=== PATIENT | female | born 1990 | race Caucasian/White ===

== ENCOUNTER 2017-12-11 13:59 | Emergency (ER) | payer OTHER ==
[~2017-12-11] VITALS: Ht 165.1 cm; Wt 68.0 kg
[~2017-12-11 13:59] MED LIST: PRE NATAL VITS
[2017-12-11 14:00] VITALS: BP_SYST 114
--- NOTE | 2017-12-11 15:35 | NUR ---
Patient to ER [facility] for evaluation. Side rails up. will assume care
[2017-12-11 15:40] LABS: BILIRUBIN,URINE NEGATIVE (NEGATIVE); BLOOD, URINE NEGATIVE (NEGATIVE); CLARITY/URINE CLEAR (CLEAR); COLOR,URINE YELLOW (YELLOW); GLUCOSE,URINE NEGATIVE (NEGATIVE); KETONES,URINE NEGATIVE (NEGATIVE); LEUKOCYTE ESTERASE ,URINE NEGATIVE (NEGATIVE); NITRITE, URINE NEGATIVE (NEGATIVE); PROTEIN URINE NEGATIVE (NEGATIVE); UROBILINOGEN,URINE 0.2 (0.2-1.0)
--- NOTE | 2017-12-11 15:40 | NUR ---
Patient complaining of upper back pain x 2 weeks. Denies any trauma. Elvira, 05/26. Denies any history. No other complaints/injuries per patient or as noted. WIll continue to monitor.
--- NOTE | 2017-12-11 15:44 | NUR ---
ER Pa Natarajan at bedside examining patient.
[2017-12-11 15:58] VITALS: BP_SYST 114
--- NOTE | 2017-12-11 15:58 | NUR ---
Patient given written and verbal discharge instructions and verbalizes understanding. ER MD discussed with patient the results and treatment provided. Patient in stable condition. ID arm band removed. Rx of Tylenol given. Patient educated on pain management and to follow up with PMD in 2-3 days. Pain Scale 0/10 Opportunity for questions provided and answered.
== END 2017-12-11 15:58 | disposition home or self-care (01) ==
LOC: SED 13:59
DX: M54.6 Pain in thoracic spine (principal)
CPT/HCPCS: 81003; 81025; 99283

== ENCOUNTER 2019-05-03 09:56 | Emergency (ER) | payer MEDICAID, OTHER ==
[~2019-05-03] VITALS: Ht 165.1 cm; Wt 64.0 kg
[2019-05-03 10:00] VITALS: BP_SYST 116
--- NOTE | 2019-05-03 10:00 | NUR ---
BROUGHT BACK TO BED #6 AND TRIAGED. REPORT GIVEN TO FITZ
--- NOTE | 2019-05-03 10:15 | NUR ---
PATIENT CAME IN COMPLAINING OF LEFT SIDED LOWER ABD CRAMPS / PAIN. PATIENT STATES IT STARTED LAST FRIDAY BUT NOW PAIN IS MORE CONSTANT. PATIENT STATES SHE IS SPOTTING BLOOD WHEN SHE WIPES. PATIENT NOT COMPLAINING OF NAUSEA OR VOMITING OR SOB. PATIENT ALERT AND ORIENTED X4.
--- NOTE | 2019-05-03 10:22 | NUR ---
ER Dr. CORTEZ at bedside examining patient.
--- NOTE | 2019-05-03 10:25 | NUR ---
PATIENT TAKEN TO [facility] IN STABLE CONDITION.
[2019-05-03 11:15] LABS: BILIRUBIN,URINE NEGATIVE (NEGATIVE); BLOOD, URINE NEGATIVE (NEGATIVE); CLARITY/URINE CLEAR (CLEAR); COLOR,URINE YELLOW (YELLOW); GLUCOSE,URINE NEGATIVE (NEGATIVE); KETONES,URINE TRACE (NEGATIVE); LEUKOCYTE ESTERASE ,URINE TRACE (NEGATIVE); NITRITE, URINE NEGATIVE (NEGATIVE); PH,URINE 5.5 (5.0-8.0); PROTEIN URINE NEGATIVE (NEGATIVE); UROBILINOGEN,URINE 0.2 (0.2-1.0)
[2019-05-03 11:20] LABS: BACTERIA,URINE FEW /HPF (None Seen); MUCUS,URINE 1+ /LPF (None Seen); RBC,URINE 0-3 /HPF (0-3)
[2019-05-03 11:23] LABS: BASOPHILS # (AUTO) 0.1 K/uL (0.0-0.2); BASOPHILS % (AUTO) 1.2 % (0.0-2.0); EOSINOPHILS % (AUTO) 0.1 % (0.0-4.0); HEMATOCRIT 37.2 % (36-48); HEMOGLOBIN 12.5 g/dL (12.0-16.0); LYMPHOCYTES # (AUTO) 1.8 K/uL (1.0-5.5); LYMPHOCYTES % (AUTO) 30.5 % (20.5-51.5); MEAN CORPUSCULAR HEMOGLOBIN 30 pg (27-31); MEAN CORPUSCULAR HGB CONC 34 % (32-36); MEAN CORPUSCULAR VOLUME 89 fL (79.0-98.0); MONOCYTES # (AUTO) 0.3 K/uL (0.0-1.0); MONOCYTES % (AUTO) 4.9 % (1.7-9.3); NEUTROPHILS # (AUTO) 3.7 K/uL (1.8-7.7); NEUTROPHILS % (AUTO) 63.3 % (40.0-70.0); PLATELET COUNT (AUTO) 330 K/uL (130-430); RED BLOOD CELL COUNT(AUTO) 4.19 MIL/uL (4.2-6.2); RED CELL DISTRIBUTION WIDTH 14.4 % (9.0-15.0); WHITE BLOOD COUNT (AUTO) 5.9 K/uL (4.8-10.8)
[2019-05-03 11:42] LABS: CALCIUM 9.5 mg/dL (8.4-11.0); CREATININE 0.57 mg/dL (0.55-1.30); POTASSIUM 3.9 mmol/L (3.5-5.1)
[2019-05-03 12:08] LABS: ALBUMIN 3.9 g/dL (3.4-4.8); TOTAL BILIRUBIN 0.4 mg/dL (0.0-1.0)
--- NOTE | 2019-05-03 13:07 | NUR ---
Patient given written and verbal discharge instructions and verbalizes understanding. ER MD Faulkner discussed with patient the results and treatment provided. Patient in stable condition. ID arm band removed. Rx of Macrodantin given. Patient educated on pain management and to follow up with PMD. Pain Scale 0. Opportunity for questions provided and answered. Medication side effect fact sheet provided.
[2019-05-03 13:08] VITALS: BP_SYST 116
== END 2019-05-03 13:07 | disposition home or self-care (01) ==
LOC: SED 09:56
DX: O23.41 Unspecified infection of urinary tract in pregnancy, first trimester (principal); O30.091 Twin pregnancy, unable to determine number of placenta and number of amniotic sacs, first trimester; Z3A.01 Less than 8 weeks gestation of pregnancy
CPT/HCPCS: 36415; 76801; 76817; 80053; 81000-TC; 81025; 84702-TC; 85025; 86901; 99284

== ENCOUNTER 2019-05-10 15:31 | Emergency (ER) | payer MEDICAID ==
[~2019-05-10] VITALS: Ht 162.6 cm; Wt 65.8 kg
[2019-05-10 15:37] VITALS: BP_SYST 136
[2019-05-10 17:03] LABS: BILIRUBIN,URINE NEGATIVE (NEGATIVE); BLOOD, URINE 2+ (NEGATIVE); CLARITY/URINE CLEAR (CLEAR); COLOR,URINE YELLOW (YELLOW); GLUCOSE,URINE NEGATIVE (NEGATIVE); KETONES,URINE NEGATIVE (NEGATIVE); LEUKOCYTE ESTERASE ,URINE NEGATIVE (NEGATIVE); NITRITE, URINE NEGATIVE (NEGATIVE); PROTEIN URINE NEGATIVE (NEGATIVE); UROBILINOGEN,URINE 0.2 (0.2-1.0)
[2019-05-10 17:04] LABS: BASOPHILS % (AUTO) 0.7 % (0.0-2.0); EOSINOPHILS % (AUTO) 0.6 % (0.0-4.0); HEMATOCRIT 33.8 % (36-48); HEMOGLOBIN 11.4 g/dL (12.0-16.0); LYMPHOCYTES # (AUTO) 2.2 K/uL (1.0-5.5); LYMPHOCYTES % (AUTO) 32.5 % (20.5-51.5); MEAN CORPUSCULAR HEMOGLOBIN 30 pg (27-31); MEAN CORPUSCULAR HGB CONC 34 % (32-36); MEAN CORPUSCULAR VOLUME 89 fL (79.0-98.0); MONOCYTES # (AUTO) 0.6 K/uL (0.0-1.0); MONOCYTES % (AUTO) 8.9 % (1.7-9.3); NEUTROPHILS # (AUTO) 3.9 K/uL (1.8-7.7); NEUTROPHILS % (AUTO) 57.3 % (40.0-70.0); PLATELET COUNT (AUTO) 273 K/uL (130-430); RED BLOOD CELL COUNT(AUTO) 3.78 MIL/uL (4.2-6.2); RED CELL DISTRIBUTION WIDTH 14.4 % (9.0-15.0); WHITE BLOOD COUNT (AUTO) 6.7 K/uL (4.8-10.8)
[2019-05-10 17:13] LABS: BACTERIA,URINE FEW /HPF (None Seen); WBC,URINE 0-3 /HPF (0-3)
[2019-05-10 17:15] LABS: CREATININE 0.56 mg/dL (0.55-1.30); POTASSIUM 3.5 mmol/L (3.5-5.1)
[2019-05-10 17:41] LABS: ALBUMIN 3.3 g/dL (3.4-4.8); TOTAL BILIRUBIN 0.1 mg/dL (0.0-1.0)
[2019-05-10] MEDS ORDERED: ACETAMINOPHEN 500 MG TABLET PO ONE (19:30)
[2019-05-10 19:50] VITALS: BP_SYST 126
[2019-05-12 03:05] LABS: CHLAMYDIA TRACHOMATIS NAA Negative (Negative); NEISSERIA GONORRHOEAE NAA Negative (Negative)
== END 2019-05-10 19:50 | disposition home or self-care (01) ==
LOC: SED 15:31
DX: O20.0 Threatened abortion (principal); R03.0 Elevated blood-pressure reading, without diagnosis of hypertension; Z79.2 Long term (current) use of antibiotics; Z3A.01 Less than 8 weeks gestation of pregnancy; Z37.4 Twins, both stillborn
CPT/HCPCS: 36415; 76801; 76817; 80053; 81000-TC; 83690-TC; 84702-TC; 85025; 86900; 86901; 87086; 87491; 87591; 99284

== ENCOUNTER 2019-05-21 18:53 | Emergency (ER) | payer MEDICAID ==
--- NOTE | 2019-05-21 19:30 | NUR ---
Called in waiting room, no answer.
--- NOTE | 2019-05-21 19:35 | NUR ---
Patient called for a second time, patient not seen in ER hallway, ER lobby, or ER entrance.
--- NOTE | 2019-05-21 19:40 | NUR ---
Patient called for a third time, patient not seen in ER hallway, ER lobby, or ER entrance.
== END 2019-05-21 19:40 | disposition left against medical advice (07) ==
LOC: SED 18:53
DX: R10.9 Unspecified abdominal pain (principal); Z53.21 Procedure and treatment not carried out due to patient leaving prior to being seen by health care provider
CPT/HCPCS: J7030

== ENCOUNTER 2019-06-28 17:15 | Emergency (ER) | payer MEDICAID ==
[~2019-06-28] VITALS: Ht 160 cm; Wt 66.7 kg
[2019-06-28 17:20] VITALS: BP_SYST 149
[2019-06-28 18:00] LABS: BASOPHILS % (AUTO) 0.7 % (0.0-2.0); EOSINOPHILS % (AUTO) 0.3 % (0.0-4.0); HEMATOCRIT 36.4 % (36-48); HEMOGLOBIN 12.2 g/dL (12.0-16.0); LYMPHOCYTES # (AUTO) 2.6 K/uL (1.0-5.5); LYMPHOCYTES % (AUTO) 43.3 % (20.5-51.5); MEAN CORPUSCULAR HEMOGLOBIN 30 pg (27-31); MEAN CORPUSCULAR HGB CONC 33 % (32-36); MEAN CORPUSCULAR VOLUME 89 fL (79.0-98.0); MONOCYTES # (AUTO) 0.3 K/uL (0.0-1.0); MONOCYTES % (AUTO) 5.3 % (1.7-9.3); NEUTROPHILS % (AUTO) 50.4 % (40.0-70.0); PLATELET COUNT (AUTO) 316 K/uL (130-430); RED BLOOD CELL COUNT(AUTO) 4.11 MIL/uL (4.2-6.2); RED CELL DISTRIBUTION WIDTH 13.3 % (9.0-15.0); WHITE BLOOD COUNT (AUTO) 5.9 K/uL (4.8-10.8)
[2019-06-28 20:25] VITALS: BP_SYST 132
== END 2019-06-28 20:25 | disposition home or self-care (01) ==
LOC: SED 17:15
DX: O46.91 Antepartum hemorrhage, unspecified, first trimester (principal); Z3A.01 Less than 8 weeks gestation of pregnancy
CPT/HCPCS: 36415; 76801; 76817; 76857; 84702-TC; 85025; 86900; 86901; 99284

== ENCOUNTER 2019-07-06 15:52 | Emergency (ER) | payer MEDICAID ==
[~2019-07-06] VITALS: Ht 160 cm; Wt 66.7 kg
[2019-07-06 16:00] VITALS: BP_SYST 138
[2019-07-06 16:51] LABS: BASOPHILS % (AUTO) 0.3 % (0.0-2.0); EOSINOPHILS # (AUTO) 0.1 K/uL (0.0-0.4); EOSINOPHILS % (AUTO) 0.8 % (0.0-4.0); HEMATOCRIT 33.2 % (36-48); HEMOGLOBIN 11.2 g/dL (12.0-16.0); LYMPHOCYTES # (AUTO) 2.1 K/uL (1.0-5.5); LYMPHOCYTES % (AUTO) 28.9 % (20.5-51.5); MEAN CORPUSCULAR HEMOGLOBIN 30 pg (27-31); MEAN CORPUSCULAR HGB CONC 34 % (32-36); MEAN CORPUSCULAR VOLUME 88 fL (79.0-98.0); MONOCYTES # (AUTO) 0.5 K/uL (0.0-1.0); MONOCYTES % (AUTO) 6.7 % (1.7-9.3); NEUTROPHILS # (AUTO) 4.6 K/uL (1.8-7.7); NEUTROPHILS % (AUTO) 63.3 % (40.0-70.0); PLATELET COUNT (AUTO) 335 K/uL (130-430); RED BLOOD CELL COUNT(AUTO) 3.78 MIL/uL (4.2-6.2); RED CELL DISTRIBUTION WIDTH 13.4 % (9.0-15.0); WHITE BLOOD COUNT (AUTO) 7.2 K/uL (4.8-10.8)
[2019-07-06 17:15] LABS: CREATININE 0.53 mg/dL (0.55-1.30); POTASSIUM 4.4 mmol/L (3.5-5.1)
--- NOTE | 2019-07-06 17:15 | NUR ---
Accompanied patient to ultrasound for transvaginal ultrasound. Patient tolerated well.
[2019-07-06 17:27] LABS: ALBUMIN 3.5 g/dL (3.4-4.8); TOTAL BILIRUBIN 0.2 mg/dL (0.0-1.0)
--- NOTE | 2019-07-06 17:36 | NUR ---
Patient to ER bed 05 to gown for evaluation. Side rails up. Report given to DAKOTA Queen
--- NOTE | 2019-07-06 17:38 | NUR ---
Marina Steve DIGITAL MARKETING EXECUTIVE at bedside examining patient.
--- NOTE | 2019-07-06 17:40 | NUR ---
pt returned back from US.
--- NOTE | 2019-07-06 18:20 | NUR ---
Marina Steve SERVICE NOW DEVELOPER performing a pelvic exam at the bedside.
[2019-07-06 18:44] LABS: BILIRUBIN,URINE NEGATIVE (NEGATIVE); BLOOD, URINE 3+ (NEGATIVE); CLARITY/URINE CLEAR (CLEAR); COLOR,URINE YELLOW (YELLOW); GLUCOSE,URINE NEGATIVE (NEGATIVE); KETONES,URINE NEGATIVE (NEGATIVE); LEUKOCYTE ESTERASE ,URINE NEGATIVE (NEGATIVE); NITRITE, URINE NEGATIVE (NEGATIVE); PROTEIN URINE NEGATIVE (NEGATIVE); UROBILINOGEN,URINE 0.2 (0.2-1.0)
[2019-07-06] MEDS: ACETAMINOPHEN 500 MG TABLET PO ONE (18:56)
[2019-07-06 18:57] VITALS: BP_SYST 138
--- NOTE | 2019-07-06 18:59 | NUR ---
Patient given written and verbal discharge instructions and verbalizes understanding. ER MD discussed with patient the results and treatment provided. Patient in stable condition. ID arm band removed. Patient educated on pain management and to follow up with PMD. Pain Scale 3/10 .Opportunity for questions provided and answered. Medication side effect fact sheet provided.Patient instructed to f/u with her OBGYN in 2 days.
[2019-07-06] MEDS ORDERED: ACETAMINOPHEN 500 MG TABLET ONE (19:06)
[2019-07-06 19:11] LABS: BACTERIA,URINE FEW /HPF (None Seen); MUCUS,URINE None Seen /LPF (None Seen); RBC,URINE 20-50 /HPF (0-3); WBC,URINE 0-3 /HPF (0-3)
== END 2019-07-06 18:57 | disposition home or self-care (01) ==
LOC: SED 15:52
DX: N93.9 Abnormal uterine and vaginal bleeding, unspecified (principal); R10.2 Pelvic and perineal pain; D64.9 Anemia, unspecified; R03.0 Elevated blood-pressure reading, without diagnosis of hypertension
CPT/HCPCS: 36415; 76830-TC; 76857; 80053; 81000-TC; 84702-TC; 85025; 99284

== ENCOUNTER 2019-09-27 21:39 | Emergency (ER) | payer MEDICAID ==
[~2019-09-27] VITALS: Ht 160 cm; Wt 66.7 kg
[2019-09-27 21:51] VITALS: BP_SYST 130
--- NOTE | 2019-09-27 21:54 | NUR ---
Patient triaged and placed in waiting room. VSS and patient appears in no acute distress at this time. Accompanied by family, awaiting available bed, and MD notified of need for MSE.
--- NOTE | 2019-09-27 22:59 | NUR ---
Pt ambulatory to bed 6 for evaluation
--- NOTE | 2019-09-27 23:01 | NUR ---
Pt c/o vomiting x 3 episodes today. Pt states yesterday she felt short of breath and then today she starte to feel dizzy and nauseous. Pt denies having any recent coughs or cold. Pt denies fever, chills, diarrhea/constipation. No other injuries/complaints per patient or noted.
--- NOTE | 2019-09-27 23:32 | NUR ---
ER Dr. Parker at bedside examining patient.
[2019-09-27] MEDS ORDERED: NACL 0.9% 1,000 ML IV ONE (23:36)
[2019-09-27] MEDS ORDERED: ONDANSETRON HCL 4 MG/2 ML VIAL IVP ONE (23:45)
[2019-09-27 23:56] LABS: BILIRUBIN,URINE NEGATIVE (NEGATIVE); BLOOD, URINE NEGATIVE (NEGATIVE); CLARITY/URINE CLEAR (CLEAR); COLOR,URINE YELLOW (YELLOW); GLUCOSE,URINE NEGATIVE (NEGATIVE); KETONES,URINE NEGATIVE (NEGATIVE); LEUKOCYTE ESTERASE ,URINE NEGATIVE (NEGATIVE); NITRITE, URINE NEGATIVE (NEGATIVE); PROTEIN URINE NEGATIVE (NEGATIVE); UROBILINOGEN,URINE 0.2 (0.2-1.0)
[2019-09-28 00:15] LABS: ALBUMIN 3.5 g/dL (3.4-4.8); CALCIUM 8.3 mg/dL (8.4-11.0); CREATININE 0.66 mg/dL (0.55-1.30); POTASSIUM 3.6 mmol/L (3.5-5.1); TOTAL BILIRUBIN 0.2 mg/dL (0.0-1.0)
[2019-09-28 00:16] LABS: BASOPHILS # (AUTO) 0.1 K/uL (0.0-0.2); BASOPHILS % (AUTO) 2.1 % (0.0-2.0); EOSINOPHILS % (AUTO) 0.9 % (0.0-4.0); HEMATOCRIT 32.8 % (36-48); HEMOGLOBIN 11.2 g/dL (12.0-16.0); LYMPHOCYTES # (AUTO) 2.5 K/uL (1.0-5.5); MEAN CORPUSCULAR HEMOGLOBIN 29 pg (27-31); MEAN CORPUSCULAR HGB CONC 34 % (32-36); MEAN CORPUSCULAR VOLUME 84 fL (79.0-98.0); MONOCYTES # (AUTO) 0.3 K/uL (0.0-1.0); MONOCYTES % (AUTO) 6.8 % (1.7-9.3); NEUTROPHILS % (AUTO) 40.2 % (40.0-70.0); PLATELET COUNT (AUTO) 284 K/uL (130-430); RED BLOOD CELL COUNT(AUTO) 3.88 MIL/uL (4.2-6.2); RED CELL DISTRIBUTION WIDTH 14.1 % (9.0-15.0)
[2019-09-28 00:22] LABS: PROTHROMBIN TIME 9.8 SECS (9.5-12.5)
--- NOTE | 2019-09-28 01:31 | NUR ---
Patient states she no longer feels nauseous, no pain. Dr. Parker made aware.
[2019-09-28 01:40] VITALS: BP_SYST 127
--- NOTE | 2019-09-28 01:40 | NUR ---
Patient given written and verbal discharge instructions and verbalizes understanding. ER MD discussed with patient the results and treatment provided. Patient in stable condition. ID arm band removed. IV catheter removed intact and dressing applied, no active bleeding. Rx of Zofran given. Patient educated on pain management and to follow up with PMD. Pain Scale 0. Opportunity for questions provided and answered. Medication side effect fact sheet provided.
== END 2019-09-28 01:40 | disposition home or self-care (01) ==
LOC: SED 21:39
DX: R11.2 Nausea with vomiting, unspecified (principal); R42 Dizziness and giddiness
CPT/HCPCS: 36415; 80053; 81003; 81025; 82150; 83690; 85025; 85610; 96361; 96374; 99283; J2405; J7030

== ENCOUNTER 2019-10-22 07:50 | Emergency (ER) | payer MEDICAID | END 2019-10-22 08:46 | disposition home or self-care (01) | LOC: SED 07:50 | DX: J02.8 Acute pharyngitis due to other specified organisms (principal); B97.89 Other viral agents as the cause of diseases classified elsewhere; K12.0 Recurrent oral aphthae | CPT/HCPCS: 99283 ==

== ENCOUNTER 2021-07-14 09:39 | Emergency (ER) | payer MEDICAID, OTHER ==
[~2021-07-14] VITALS: Ht 162.6 cm; Wt 68.9 kg
--- NOTE | 2021-07-14 09:39 | NUR ---
Patient triaged and placed in waiting room. VSS and patient appears in no acute distress at this time. Accompanied by SELF, awaiting available bed, and MD notified of need for MSE.
[2021-07-14 09:40] VITALS: BP_SYST 147
--- NOTE | 2021-07-14 10:01 | NUR ---
DR AGOSTO OUT TO TRIAGE ROOM FOR EVALUATION
--- NOTE | 2021-07-14 10:07 | NUR ---
TAKEN TO RADIOLOGY FOR TESTING
--- NOTE | 2021-07-14 10:15 | NUR ---
BROUGHT BACK TO BED#5 AND REPORT GIVEN TO NATIVIDAD
--- NOTE | 2021-07-14 10:20 | NUR ---
pt arrives from home w/ a "pinching" senstation to the chest after receiving the second dose of the moderna vaccine
[2021-07-14 10:45] LABS: EOSINOPHILS % (AUTO) 1.1 % (0.0-4.0); LYMPHOCYTES # (AUTO) 1.6 K/uL (1.0-5.5); LYMPHOCYTES % (AUTO) 45.7 % (20.5-51.5); MEAN CORPUSCULAR HEMOGLOBIN 28 pg (27-31); MEAN CORPUSCULAR HGB CONC 34 % (32-36); MEAN CORPUSCULAR VOLUME 83 fL (79.0-98.0); MONOCYTES # (AUTO) 0.5 K/uL (0.0-1.0); MONOCYTES % (AUTO) 13.3 % (1.7-9.3); PLATELET COUNT (AUTO) 254 K/uL (130-430); RED BLOOD CELL COUNT(AUTO) 4.21 MIL/uL (4.2-6.2); RED CELL DISTRIBUTION WIDTH 17.6 % (9.0-15.0); WHITE BLOOD COUNT (AUTO) 3.6 K/uL (4.8-10.8)
[2021-07-14 10:49] LABS: BASOPHILS % (AUTO) 0.9 % (0.0-2.0); NEUTROPHILS # (AUTO) 1.4 K/uL (1.8-7.7)
[2021-07-14 11:00] LABS: CALCIUM 8.8 mg/dL (8.4-11.0); CREATININE 0.69 mg/dL (0.55-1.30); POTASSIUM 4.6 mmol/L (3.5-5.1)
[2021-07-14 11:06] LABS: ALBUMIN 3.6 g/dL (3.4-4.8); TOTAL BILIRUBIN 0.1 mg/dL (0.0-1.0)
[2021-07-14 11:35] VITALS: BP_SYST 132
--- NOTE | 2021-07-14 11:36 | NUR ---
Patient given written and verbal discharge instructions and verbalizes understanding. ER MD discussed with patient the results and treatment provided. Patient in stable condition. ID arm band removed. NO Rx given. Patient educated on pain management and to follow up with PMD. Pain Scale 0/10. Opportunity for questions provided and answered. Medication side effect fact sheet provided.
== END 2021-07-14 11:35 | disposition home or self-care (01) ==
LOC: SED 09:39
DX: R06.02 Shortness of breath (principal); R07.9 Chest pain, unspecified
CPT/HCPCS: 36415; 71045; 80053; 84484; 85025; 93005; 99285